=== PATIENT | female | born 1960 | race Asian ===

== ENCOUNTER 2018-02-23 19:35 | Inpatient (IN) | payer MEDICAID ==
[~2018-02-23] VITALS: Ht 157.5 cm; Wt 65.8 kg
--- NOTE | ~2018-02-23 | MORECARE ---
CASE MANAGEMENT DISCHARGE SUMMARY PATIENT: JANNETTE RAMIRES UNIT: [id number] ADM DATE: 02/24/18 AGE: 57 : 56 SEX: F ROOM/BED: D.2222 AUTHOR: CASE, CONSUMER EXPERIENCE CONSULTANT PHYSICIAN: REFERRING PHYSICIAN: DELIA PERES MD DATE OF SERVICE: 02/24/18 Discharge Plan Patient Name: JANNETTE RAMIRES Facility: [facility]:[place] : 1960 Planned Disposition: Home Anticipated Discharge Date: Discharge Date: Expected LOS: Initial Reviewer: [email or web address] Initial Review Date: 02/24/2018 Generated: 02/25/18 10:53 am Comments DCP- Discharge Planning Updated by [email or web address]: Neisha Can on 02/25/18 8:[address] Patient Name: JANNETTE RAMIRES Admission Status: ER Accout number: [id number] Admission Date: 02-24-2018 : 1960 Admission Diagnosis: Attending: DELIA PERES Current LOS: 1 Anticipated DC Date: Planned Disposition: Home Primary Insurance: [place] [employer] [place] Discharge Planning Comments: Patient to discharge home today. She stated that she is independent with her care. She lives with her brother. Her brother will be the one to pick her up and she denies any needs from a CM standpoint. CM will continue to follow and assist with DC planning. Environmental Programs Specialist: Neisha Can Patient Name: JANNETTE RAMIRES Page [id number] All edits/amendments must be made on the electronic document DICTATION DATE: 02/25/18 0953 CASTING DIRECTOR: 02/25/18 0953 RPT#: [id number] DC DATE:02/25/18 STATUS: DIS IN [facility] [address] [facility] [place] [address] END OF REPORT
[~2018-02-23 19:35] MED LIST: BAYER CHEWABLE81 MG PO; CELEXA20 MG PO; CLEOCIN HCL300 MG PO; GLIMEPIRIDE4 MG PO; GLUCOPHAGE500 MG PO; JANUVIA100 MG PO; KLONOPIN1 MG PO; LEVAQUIN500 MG PO; LISINOPRIL10 MG PO; PRAVASTATIN SOD10 MG PO
[2018-02-23] MEDS ORDERED: ABILIFY MAINTE400 MG IM (19:53)
[2018-02-23] MEDS ORDERED: TRAZODONE HCL50 MG PO (19:54)
[2018-02-23] MEDS ORDERED: GEODON40 MG PO (19:55)
[2018-02-23] MEDS ORDERED: TOFRANIL25 MG PO (19:55)
[2018-02-23] MEDS ORDERED: MOBIC7.5 MG (19:56)
[2018-02-23 20:30] VITALS: BP 116/73
[2018-02-23 21:03] LABS: APPEARANCE CLEAR (CLEAR); BILIRUBIN NEGATIVE (NEGATIVE); COLOR YELLOW (YELLOW); GLUCOSE NEGATIVE (NEGATIVE); KETONE SMALL mg/dL (NEGATIVE); NITRITE NEGATIVE (NEGATIVE); PROTEIN NEGATIVE (NEGATIVE); SPECIFIC GRAVITY 1.015 (1.005-1.020); UROBILINOGEN NORMAL (NORMAL)
[2018-02-23 21:05] LABS: BASOPHILS 0.3 % (0-2); EOSINOPHILS 3.9 % (0-7); HEMATOCRIT 41.1 % (36.0-48.0); HEMOGLOBIN 13.1 g/dL (12-16); IMMATURE GRANULOCYTES 0.3 % (0-5); LYMPHOCYTES 38.2 % (15-50); MCHC 31.9 g/dL (31.0-37.0); MCV 90.9 fL (80.0-100.0); MEAN PLATELET VOLUME 9.9 fL (7.4-10.4); MONOCYTES 11.9 % (2-11); NEUTROPHILS 45.4 % (40-80); RBC 4.52 10x6/uL (4.00-5.40); RDW 12.8 % (11.5-14.5); WBC 3.4 10x3/uL (4.8-10.8)
[2018-02-23 21:06] LABS: PLATELET COUNT 135 10x3/uL (130-400)
[2018-02-23 21:31] LABS: INR 0.9 (0.85-1.17); PROTIME 11.8 SECONDS (11.6-15.0)
[2018-02-23 21:33] LABS: ALBUMIN 3.8 g/dL (3.4-5.0); ALKALINE PHOSPHATASE 77 U/L (46-116); ALT (SGPT) 32 U/L (10-68); BILIRUBIN - TOTAL 0.21 mg/dL (0.2-1.3); CALC OSMOLALITY 279 mosm/kg (275-300); CALCIUM 8.3 mg/dL (8.5-10.1); CARBON DIOXIDE 27.2 mmol/L (21.0-32.0); CHLORIDE - SERUM 103 mmol/L (98-107); CREATININE - SERUM 0.9 mg/dL (0.6-1.3); GLUCOSE 144 mg/dL (74-106); POTASSIUM - SERUM 4.2 mmol/L (3.5-5.1); PROTEIN - SERUM 7.8 g/dL (6.4-8.2); SODIUM 136 mmol/L (136-145); UREA NITROGEN 27 mg/dL (7-18); eGFR NON AFRICAN AMERICAN 68 mL/min (90-120)
[2018-02-23 21:50] LABS: CREATINE KINASE 95 UL (21-215); PRO BNP 40 pg/mL (0-125); THYROID STIMULATING HORMONE 2.65 uIU/mL (0.36-3.74)
[2018-02-23 21:51] VITALS: BP 123/67
[2018-02-23 21:52] LABS: TROPONIN-I < 0.017 ng/mL (0.000-0.060)
[2018-02-23 22:50] VITALS: BP 122/78
[2018-02-23 23:00] VITALS: BP 112/64
[2018-02-24] VITALS (9 sets, daily range): BP systolic 100–144; BP diastolic 62–96; Ht 157.5 cm; Wt 65.8 kg
[2018-02-24] MEDS ORDERED: ARISTADA IM (20:49)
[2018-02-24] MEDS ORDERED: GLIMEPIRIDE4 MG PO (20:50)
[2018-02-25 05:18] VITALS: BP 112/85
[2018-02-25 06:09] LABS: ALBUMIN 3.3 g/dL (3.4-5.0); ALKALINE PHOSPHATASE 66 U/L (46-116); ALT (SGPT) 26 U/L (10-68); BILIRUBIN - TOTAL 0.22 mg/dL (0.2-1.3); CALC OSMOLALITY 280 mosm/kg (275-300); CARBON DIOXIDE 29.4 mmol/L (21.0-32.0); CHLORIDE - SERUM 104 mmol/L (98-107); CREATININE - SERUM 0.8 mg/dL (0.6-1.3); GLUCOSE 144 mg/dL (74-106); PROTEIN - SERUM 7.1 g/dL (6.4-8.2); SODIUM 139 mmol/L (136-145); eGFR NON AFRICAN AMERICAN 78 mL/min (90-120)
[2018-02-25 06:24] LABS: UREA NITROGEN 13 mg/dL (7-18)
[2018-02-25 07:49] VITALS: BP 119/75
[2018-02-25 07:54] LABS: HEMATOCRIT 39.6 % (36.0-48.0); HEMOGLOBIN 12.6 g/dL (12-16); MCH 28.9 pg (26.0-34.0); MCHC 31.8 g/dL (31.0-37.0); MCV 90.8 fL (80.0-100.0); MEAN PLATELET VOLUME 9.7 fL (7.4-10.4); PLATELET COUNT 122 10x3/uL (130-400); RBC 4.36 10x6/uL (4.00-5.40); RDW 12.9 % (11.5-14.5); WBC 2.2 10x3/uL (4.8-10.8)
[2018-02-25 08:20] LABS: BASOPHILS 1 % (0-2); EOSINOPHILS 3 % (0-7); LYMPHOCYTES 66 % (15-50); MONOCYTES 7 % (2-11); NEUTROPHILS 23 % (40-80)
[2018-02-25 08:21] LABS: PLATELET ESTIMATE DECREASED; ROULEAUX OCC
[2018-02-25] MEDS ORDERED: ZITHROMAX250 MG PO (08:22)
== END 2018-02-25 11:00 | disposition home or self-care (01) | DRG 195 ==
LOC: D.ER 19:35 → D.EDHOLD 02-24 00:23 → D.MS 02-24 00:23
PROVIDERS: Family Medicine
DX: J18.9 Pneumonia, unspecified organism (principal); E11.9 Type 2 diabetes mellitus without complications; I10 Essential (primary) hypertension; F32.9 Major depressive disorder, single episode, unspecified